=== PATIENT | male | born 1975 | race Caucasian/White ===

== ENCOUNTER 2018-03-15 15:23 | Emergency (ER) | payer MEDICARE, MEDICAID ==
[~2018-03-15] VITALS: Ht 177.8 cm; Wt 62.1 kg
--- NOTE | 2018-03-15 15:25 | NUR ---
BIBRA FROM THE STREETS FOR ETOH. BG 98. NO OBVIOUS TRAUMA NOTED. RR IS EVEN AND UNLABORED WITH NAD NOTED. SKIN IS WARM AND DRY. AWAITING MD FOR EVAL.
--- NOTE | 2018-03-15 16:30 | NUR ---
Patient is resting comfortably in bed with eyes closed. Easily aroused. VSS
--- NOTE | 2018-03-15 18:25 | NUR ---
Patient is resting comfortably in bed with eyes closed. Easily aroused. VSS
--- NOTE | 2018-03-15 19:43 | NUR ---
REPORT GIVEN TO ESME SALAMANCA FOR JOSÉ.
--- NOTE | 2018-03-15 19:45 | NUR ---
Patient discharged to home in stable condition. Written and verbal after care instructions given. Patient verbalizes understanding of instruction. PT ambulatory with a steady gait VITAL SIGNS WITHIN NORMAL LIMITS.
[2018-03-15 19:49] VITALS: BP 121/79
== END 2018-03-15 19:46 | disposition home or self-care (01) ==
LOC: ER 15:26 → EDBD 15:26 → ER 19:46
DX: F10.129 Alcohol abuse with intoxication, unspecified (principal); R41.82 Altered mental status, unspecified; Z59.0 Homelessness; Y90.9 Presence of alcohol in blood, level not specified
CPT/HCPCS: A4606; Z7610